=== PATIENT | male | born 1965 | race Hispanic/Latino ===

== ENCOUNTER 2017-01-18 10:52 | Emergency (ER) | payer MEDICAID ==
[2017-01-18 11:08] VITALS: BMI 46.5
[2017-01-18 11:12] VITALS: TEMP 98.1
--- NOTE | 2017-01-18 11:34 | ED PDOC ---
Arrival/HPI - General Chief Complaint: High Blood Pressure Time Seen by Provider: 01/18/17 11:25 Historian: Patient - History of Present Illness Narrative History of Present Illness (Text): 01/18/17 11:34 A 51 year old male, whose past medical history includes hypertension, was sent into the emergency department by clinic for high blood pressure. Patient reports he ran out of his medication 4 days ago. Patients blood pressure was 200 /120 at clinic but has spontaneously improved on its own. Patient notes a slight headache but denies any weakness, dizziness, fever, nausea, vomiting, abdominal pain, chest pain, shortness of breath or any other complaints. PMD: None 01/18/17 19:47 Time/Duration: Prior to Arrival Symptom Course: Improving Quality: Other Context: Other Past Medical History - Provider Review Nursing Documentation Reviewed: Yes - Cardiac Hx Cardiac Disorders: Yes Hx Hypertension: Yes - Pulmonary Hx Respiratory Disorders: No - Neurological Hx Neurological Disorder: No - HEENT Hx HEENT Disorder: No - Renal Hx Renal Disorder: No - Endocrine/Metabolic Hx Endocrine Disorders: No - Hematological/Oncological Hx Blood Disorders: No - Integumentary Hx Dermatological Disorder: No - Musculoskeletal/Rheumatological Hx Musculoskeletal Disorders: No - Gastrointestinal Hx Gastrointestinal Disorders: No - Genitourinary/Gynecological Hx Genitourinary Disorders: No - Psychiatric Hx Psychophysiologic Disorder: No Hx Substance Use: No - Surgical History Hx Appendectomy: Yes Other/Comment: colon resection Family/Social History - Physician Review Nursing Documentation Reviewed: Yes Family/Social History: No Known Family HX Smoking Status: Never Smoked Hx Alcohol Use: No Hx Substance Use: No Allergies/Home Meds Allergies/Adverse Reactions: Allergies No Known Allergies Allergy (Verified 01/18/17 11:08) Review of Systems - Physician Review All systems were reviewed & negative as marked: Yes - Review of Systems Constitutional: Other (high blood pressure). absent: Fevers Respiratory: absent: SOB Cardiovascular: absent: Chest Pain Gastrointestinal: absent: Abdominal Pain, Diarrhea, Nausea, Vomiting Neurological: Headache. absent: Dizziness, Focal Weakness Physical Exam Vital Signs Reviewed: Yes Vital Signs Temp Pulse Resp BP Pulse Ox 01/18/17 14:20 83 18 180/92 H 97 01/18/17 13:23 91 H 157/109 H 01/18/17 12:55 94 H 162/106 H 01/18/17 12:46 162/106 H 01/18/17 11:08 98.1 F 98 H 16 155/92 H 93 L Temperature: Afebrile Blood Pressure: Hypertensive Pulse: Tachycardic Respiratory Rate: Normal Appearance: Positive for: Well-Appearing, Non-Toxic, Comfortable Pain Distress: None Mental Status: Positive for: Alert and Oriented X 3 - Systems Exam Head: Present: Atraumatic, Normocephalic Pupils: Present: PERRL Extroacular Muscles: Present: EOMI Conjunctiva: Present: Normal Mouth: Present: Moist Mucous Membranes Neck: Present: Normal Range of Motion Respiratory/Chest: Present: Clear to Auscultation, Good Air Exchange. No: Respiratory Distress, Accessory Muscle Use Cardiovascular: Present: Regular Rate and Rhythm, Normal S1, S2. No: Murmurs Abdomen: Present: Normal Bowel Sounds. No: Tenderness, Distention, Peritoneal Signs Back: Present: Normal Inspection Upper Extremity: Present: Normal Inspection. No: Cyanosis, Edema Lower Extremity: Present: Normal Inspection. No: Edema Neurological: Present: GCS=15, CN II-XII Intact, Speech Normal, Motor Func Grossly Intact, Normal Sensory Function, Normal Cerebellar Funct, Gait Normal. No: Other (Focal deficits) Skin: Present: Warm, Dry, Normal Color. No: Rashes Psychiatric: Present: Alert, Oriented x 3, Normal Insight, Normal Concentration Medical Decision Making ED Course and Treatment: 01/18/17 11:34 Impression: A 51 year old male with high blood pressure . states no symptoms at this time.. Patient recently ran out his medication and in process of switching doctors at this time. Plan: -- Hydrochlororthiazide -- Reassess and disposition bp still high. given clonidine. bp improved. throughout this, pt asymptomatic. isntructed on need for outpt follow up in 1-2 days. return immediately wtih any worsening or concerning symptoms. pt understands. Progress Notes: 01/18/17 19:47 - Medication Orders Current Medication Orders: Discontinued Medications Amlodipine Besylate (Norvasc) 10 mg PO STAT STA Stop: 01/18/17 11:42 Last Admin: 01/18/17 12:55 Dose: 10 MG MAR Pulse and Blood Pressure Document 01/18/17 12:55 EQ (Rec: 01/18/17 13:27 EQ [facility] [id number]) Pulse Pulse Rate (60-90) 94 Blood Pressure Blood Pressure (100/60-150/90) 162/106 Clonidine HCl (Catapres) 0.1 mg PO STAT STA Stop: 01/18/17 13:40 Hydrochlorothiazide (Hydrodiuril) 25 mg PO STAT STA Stop: 01/18/17 11:41 Last Admin: 01/18/17 12:25 Dose: 25 MG Metoprolol Succinate (Toprol Xl) 50 mg PO STAT STA Stop: 01/18/17 11:42 Last Admin: 01/18/17 12:27 Dose: - Scribe Statement The provider has reviewed the documentation as recorded by the Mayuriibluisa Prather Provider Scribe Attestation: All medical record entries made by the Scribe were at my direction and personally dictated by me. I have reviewed the chart and agree that the record accurately reflects my personal performance of the history, physical exam, medical decision making, and the department course for this patient. I have also personally directed, reviewed, and agree with the discharge instructions and disposition. Disposition/Present on Arrival - Present on Arrival Any Indicators Present on Arrival: No History of DVT/PE: No History of Uncontrolled Diabetes: No Urinary Catheter: No History of Decub. Ulcer: No History Surgical Site Infection Following: None - Disposition Have Diagnosis and Disposition been Completed?: Yes Diagnosis: Hypertension Disposition: HOME/ ROUTINE Disposition Time: 13:25 Condition: GOOD Discharge Instructions (ExitCare): Hypertension (ED) Additional Instructions: follow up with your primary doctor in 2 days. return to the ED with any worsening or concerning symptoms. Prescriptions: Hydrochlorothiazide [Microzide] 25 mg PO DAILY #14 cap Referrals: PCP,NO [Primary Care Provider] - Follow up with primary
[2017-01-18] MEDS ORDERED: Metoprolol Succinate 50 mg XL Tab PO STA (11:41)
[2017-01-18 14:20] VITALS: BP 180/92; PULSE 83; RESP 18; O2SAT 97
== END 2017-01-18 14:23 | disposition home or self-care (01) ==
LOC: ED 10:52
DX: I10 Essential (primary) hypertension (principal)